=== PATIENT | male | born 1955 | race Caucasian/White ===

== ENCOUNTER → 2016-11-06 | Emergency (ER) | payer OTHER ==
[2016-11-06] VITALS (11 sets, daily range): BP systolic 97–176; RESP 18–20; TEMP 98–98.6
[~2016-11-06] MED LIST: DILAUDID 1 MG/ML AMP IV PRN; FENTANYL 100 MCG/2 ML AMP IV ONE; GLYCOPYRROLATE 0.2 MG/ML VIAL IV ONE; LACT RINGERS 1,000 ML IV ONE; LACT RINGERS 1,000 ML IV SCH; MIDAZOLAM 2 MG/2 ML INJ IV ONE; MIDAZOLAM 2 MG/2 ML INJ ONE; MORPHINE 2 MG/ML SYR IV PRN; MORPHINE 4 MG/ML SYR IV PRN; NEOSTIGMINE 10 MG/10 ML VIAL IV ONE; ONDANSETRON 4 MG VIAL IV PRN; ONDANSETRON 4 MG VIAL IV PUSH ONE; OPTIRAY 350 100 ML VIAL HMH IV ONE; OXYCODONE 5 MG TAB PO PRN; PIPER/TAZO 3.375 GM PYXIS ONE; PROMETHAZINE 25 MG/ML VIAL IV PRN; PROPOFOL 20 ML PER ML IV ONE; ROCURONIUM 50 MG VIAL IV ONE; SODIUM CHLORIDE 0.9% 0 ML ONE; SODIUM CHLORIDE 0.9% 1,000 ML ONE; SODIUM CHLORIDE 0.9% 100 ML IV ONE
[2016-11-06] MEDS: MEPERIDINE 25 MG/ML IV PRN ×2 (16:29→16:44)
== END ==
LOC: ER 09:27
DX: K35.80 Unspecified acute appendicitis (principal); R13.10 Dysphagia, unspecified; K44.9 Diaphragmatic hernia without obstruction or gangrene; I11.9 Hypertensive heart disease without heart failure; E78.00 Pure hypercholesterolemia, unspecified; F32.9 Major depressive disorder, single episode, unspecified; M06.9 Rheumatoid arthritis, unspecified; Z98.61 Coronary angioplasty status; Z79.82 Long term (current) use of aspirin; Z79.899 Other long term (current) drug therapy
CPT/HCPCS: 36415; 74177; 80053; 81001; 83690; 85025; 88304; 88305; 96361; 96365